=== PATIENT | male | born 1965 | race Caucasian/White ===

== ENCOUNTER 2022-07-28 08:53 | Outpatient (CLI) | payer BC | END 2022-07-28 08:54 | disposition home or self-care (01) | LOC: CSHULT 08:53 | PROVIDERS: ATTEND Plastic Surgery Surgery of the Hand | DX: E04.1 Nontoxic single thyroid nodule (principal); E04.2 Nontoxic multinodular goiter | CPT/HCPCS: 76536 ==

== ENCOUNTER 2022-08-20 08:16 | Day surgery (SDC) | payer BC ==
[2022-08-20 08:57] VITALS: BP 128/86; TEMP 97.6; BMI 29.3
[2022-08-20] MEDS ORDERED: Sodium Bicarbonate 2.5 MEQ/5 ML VIAL ONE (09:05)
[2022-08-20] MEDS ORDERED: Lidocaine 1% w/Epinephrine 1:200K 30 ML VIAL ONE (09:06)
[2022-08-20] MEDS ORDERED: Lidocaine 1% PF 5 ML VIAL ONE (09:07)
[2022-08-23] MEDS ORDERED: FLU VACC QS2022-23(6MOS UP)/PF 60 MCG/0.5 ML SYRINGE IM ONE (09:30)
== END 2022-08-20 09:45 | disposition home or self-care (01) ==
LOC: CSHULT 08:16
PROVIDERS: ATTEND Specialist
PROC: 0GBH3ZX Excision of Right Thyroid Gland Lobe, Percutaneous Approach, Diagnostic (ICD-10-PCS; principal; 2022-08-20)
DX: E04.1 Nontoxic single thyroid nodule (principal)
CPT/HCPCS: 10005; 88173; 88305